=== PATIENT | female | born 2000 | race Caucasian/White ===

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

== ENCOUNTER 2018-03-28 05:03 | Emergency (ER) | payer SELFPAY ==
[2018-03-28] MEDS ORDERED: SODIUM BICARBONATE SYRINGE 50 MEQ/50 ML SYG IV ONE ×2 (05:04→05:49)
[2018-03-28] MEDS ORDERED: WATER FOR INJ 10 ML VIAL INJ ONE (05:04)
[2018-03-28] MEDS ORDERED: ETOMIDATE INJECTION 2 MG/ML 20ML VIAL IV ONE (05:04)
[2018-03-28] MEDS ORDERED: VECURONIUM BROMIDE 10 MG VIAL IV ONE (05:04)
[2018-03-28] MEDS ORDERED: SODIUM CHLORIDE 0.9% 1000ML 1,000 ML IVS PRN (05:06)
[2018-03-28 05:14] VITALS: TEMP 98.5
[2018-03-28] MEDS ORDERED: SUCCINYLCHOLINE CHLORIDE 200 MG/10 ML VIAL ONE (05:21)
[2018-03-28] MEDS ORDERED: PROPOFOL 200 MG/20 ML VIAL IV ONE (05:34)
[2018-03-28] MEDS ORDERED: ACTIVATED CHARCOAL PELLETS 25 GM BTTL ONE (05:49)
[2018-03-28] MEDS ORDERED: DEX 5% W/NACL 0.9% 1000ML 1,000 ML IVS ONE (05:51)
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
[2018-03-28] MEDS ORDERED: SORBITOL 70 % 30 ML UD ONE (06:06)
--- NOTE | 2018-03-28 06:26 | RAD ---
EXAM DESCRIPTION: Chest,1 View CLINICAL HISTORY:17 years Female, POST INTUBATION Comparison: None FINDINGS: Endotracheal tube tip 3.8 cm above the genoveva. Hazy opacities throughout the left mid to upper lung. Enteric tube courses below the diaphragm. No pleural effusion. No pneumothorax. Cardiac and mediastinal silhouette is unremarkable. No acute osseous abnormality. Soft tissues are unremarkable. IMPRESSION: ET tube tip 3.8 cm above the genoveva. Hazy opacities throughout the left mid upper lung representing atelectasis, pulmonary edema or pneumonia. Electronically signed by: Roberto Muñoz MD 03/28/2018 6:24 AM CDT
[2018-03-28 07:17] VITALS: BP 174/92; O2SAT 96
== END 2018-03-28 06:40 | disposition home or self-care (01) ==
LOC: ER 05:03
DX: T43.012A Poisoning by tricyclic antidepressants, intentional self-harm, initial encounter (principal); F19.10 Other psychoactive substance abuse, uncomplicated; S51.812A Laceration without foreign body of left forearm, initial encounter; S61.512A Laceration without foreign body of left wrist, initial encounter; R00.0 Tachycardia, unspecified; F31.9 Bipolar disorder, unspecified; F41.9 Anxiety disorder, unspecified; Z79.899 Other long term (current) drug therapy; Z91.5 Personal history of self-harm; X83.8XXA Intentional self-harm by other specified means, initial encounter
CPT/HCPCS: 31500; 36415; 36600; 71045; 80053; 80307; 80320; 80329; 82550; 82553; 82803; 82805; 84484; 84703; 85025; 85610; 85730; 93005; 94002; 94770; A4216; J0330; J3490; J7799

== ENCOUNTER 2019-10-14 14:45 | Emergency (ER) | payer SELFPAY ==
[2019-10-14] MEDS ORDERED: predniSONE 20 MG TAB PO ONE (16:11)
--- NOTE | 2019-10-14 16:15 | ED.PDOC ---
History of Present Illness - General Chief Complaint: General Stated Complaint: I yelled so much I don't have a voice Time Seen by Provider: 10/14/19 14:48 Source: patient Exam Limitations: no limitations - History of Present Illness Initial Comments: The patient is a 19-year-old female presented emergency room secondary to hoarseness since Friday. Apparently at that time she has been screaming at some point for an extended period of time. She was hoarse fairly quickly. Pain started at that time and has persisted. No fever. No runny nose. No sore throat otherwise. No nausea vomiting or diarrhea. Timing/Duration: 1 week Severity: moderate Improving Factors: nothing Worsening Factors: nothing Associated Symptoms: denies symptoms Allergies/Adverse Reactions: Allergies band-aids Allergy (Uncoded 09/21/17 12:34) Home Medications: Ambulatory Orders Amoxicillin 875 mg PO BID #20 tab 07/02/16 Ondansetron [Zofran Odt] 4 mg PO Q8H PRN #10 tab 07/02/16 Potassium Chloride [Micro-K] 10 meq PO DAILY #5 cap 07/02/16 Prednisone [Deltasone] 40 mg PO DAILY #10 tab 11/10/16 hydrOXYzine HCl [Atarax] 25 mg PO Q6H PRN #15 tab 11/10/16 predniSONE [Prednisone] 20 mg PO DAILY #4 tab 10/14/19 Review of Systems - Review of Systems Constitutional: States: no symptoms reported EENTM: States: no symptoms reported Respiratory: States: see HPI Cardiology: States: no symptoms reported Gastrointestinal/Abdominal: States: no symptoms reported Genitourinary: States: no symptoms reported Musculoskeletal: States: no symptoms reported Skin: States: no symptoms reported Neurological: States: no symptoms reported Endocrine: States: no symptoms reported All other Systems: No Change from Baseline Past Medical History (General) - Patient Medical History Hx Seizures: No Hx Stroke: No Hx Dementia: No Hx Asthma: Yes Hx of COPD: No Hx Cardiac Disorders: No Hx Congestive Heart Failure: No Hx Pacemaker: No Hx Hypertension: No Hx Thyroid Disease: No Hx Diabetes: No Hx Gastroesophageal Reflux: No Hx Renal Disease: No Hx Cancer: No Hx of HIV: No Hx Hepatitis C: No Hx MRSA: No - Vaccination History Hx Tetanus, Diphtheria Vaccination: Yes Hx Influenza Vaccination: No Hx Pneumococcal Vaccination: No - Social History Hx Tobacco Use: Yes Hx Chewing Tobacco Use: No Hx Alcohol Use: Yes Hx Substance Use: No Hx Substance Use Treatment: No Hx Depression: No Hx Physical Abuse: No Hx Emotional Abuse: No Hx Suspected Abuse: No - Female History Patient is a Female of Child Bearing Age (10 -59 yrs old): Yes Hx Last Menstrual Period: 06/03/17 Patient : - Patient report possibly Hx Gestational Age: 14 Family Medical History - Family History Mother Name: Alycia Jung Age (years): 32 Living Status: Still Living Hx Family Hypertension: Yes Hx Family Cancer: Yes Hx Family;Other: bipolar Physical Exam - Physical Exam General Appearance: Alert, Comfortable, No apparent distress Eye Exam: bilateral normal Ears, Nose, Throat: hearing grossly normal, normal pharynx Neck: supple, other - The patient is worse. Mild diffuse discomfort to palpation over the larynx Respiratory: lungs clear, normal breath sounds, no respiratory distress, no accessory muscle use Cardiovascular/Chest: normal peripheral pulses, regular rate, rhythm, no edema Peripheral Pulses: radial,right: 2+, radial,left: 2+ Rectal Exam: deferred Extremity: normal range of motion, no pedal edema, normal capillary refill Neurologic: flight teacher II-XII nml as tested, alert, normal mood/affect, oriented x 3 Skin Exam: normal color Comments: Vital Signs - 24 hr 10/14/19 15:14 Temperature 98.4 F Pulse Rate [ 86 monitor] Respiratory 18 Rate Blood Pressure 143/88 [Left Arm] O2 Sat by Pulse 100 Oximetry Progress - Progress Progress: 10/14/19 16:16 The patient is a 19-year-old female presented emergency room secondary to what appears to be traumatic laryngitis from overuse. She can continue [id number] Motrin or Aleve. She will be written for 4 days of oral p rednisone. First dose is given here. She needs to avoid straining her voice. She can try and use some topical anesthetics such as Chloraseptic. ER warnings are given. Keep routine follow-up with primary care doctor. If symptoms are not improving over the next week to 10 days then a ENT referral may be warranted. [email or web address] Departure - Departure Clinical Impression: Laryngitis Disposition: Discharge to Home or Self Care Condition: Good Departure Forms: ED Discharge - Pt. Copy, Patient Portal Self Enrollment Instructions: Laryngitis (DC) Diet: regular diet Activity: increase activity as tolerated Referrals: Yamileth Brito FNP [Primary Care Provider] - 1-2 Weeks Prescriptions: predniSONE [Prednisone] 20 mg PO DAILY #4 tab Home Medications: Ambulatory Orders Amoxicillin 875 mg PO BID #20 tab 07/02/16 Ondansetron [Zofran Odt] 4 mg PO Q8H PRN #10 tab 07/02/16 Potassium Chloride [Micro-K] 10 meq PO DAILY #5 cap 07/02/16 Prednisone [Deltasone] 40 mg PO DAILY #10 tab 11/10/16 hydrOXYzine HCl [Atarax] 25 mg PO Q6H PRN #15 tab 11/10/16 predniSONE [Prednisone] 20 mg PO DAILY #4 tab 10/14/19 Additional Instructions: The patient is a 19-year-old female presented emergency room secondary to what appears to be traumatic laryngitis from overuse. She can continue [id number] Motrin or Aleve. She will be written for 4 days of oral prednisone. First dose is given here. She needs to avoid straining her voice. She can try and use some topical anesthetics such as Chloraseptic. ER warnings are given. Keep routine follow-up with primary care doctor. If symptoms are not improving over the next week to 10 days then a ENT referral may be warranted.
[2019-10-14 16:56] VITALS: BP 134/80; TEMP 97.8; O2SAT 95
== END 2019-10-14 16:52 | disposition home or self-care (01) ==
LOC: ER 14:45
DX: J04.0 Acute laryngitis (principal); F17.200 Nicotine dependence, unspecified, uncomplicated
CPT/HCPCS: 81025; J7512

== ENCOUNTER 2020-01-10 20:47 | Emergency (ER) | payer SELFPAY ==
[2020-01-10] MEDS ORDERED: cefTRIAXone SODIUM 1 GM in SODIUM CHL 0.9% 50ML MIN-BAG+ 50 ML IVPB ONE (21:08)
[2020-01-10] MEDS ORDERED: AZITHROMYCIN IV 500 MG in SODIUM CHLORIDE 0.9% 250ML 250 ML IVPB ONE (21:09)
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
--- NOTE | 2020-01-10 21:34 | RAD ---
XR CHEST 1 VIEW CLINICAL STATEMENT: SOB COMPARISON: 03/28/2018 FINDINGS: Cardiomediastinal silhouette is within normal limits. There is no focal lung consolidation or pleural effusion. No evidence of pulmonary edema or pneumothorax. IMPRESSION: No acute cardiopulmonary disease. Electronically signed by: Tavares Mallory MD 01/10/2020 9:32 PM CDT
[2020-01-10] MEDS ORDERED: IPRATROPIUM/ALBUTEROL 3 ML VIAL NEB ONE ×3 (21:43→22:15)
[2020-01-10] MEDS ORDERED: ONDANSETRON INJ 4 MG/2 ML VIAL IV ONE (22:04)
[2020-01-10] MEDS ORDERED: DEXAMETHASONE INJ 10 MG/ML VIAL PO ONE (23:11)
[2020-01-10 23:56] VITALS: TEMP 98.9
[2020-01-11 01:14] VITALS: BP 163/101; O2SAT 94
== END 2020-01-11 01:00 | disposition left against medical advice (07) ==
LOC: ER 20:47 → UNDOADMOB 23:43 → MS 23:43 → ER 01-11 01:00
DX: J18.9 Pneumonia, unspecified organism (principal); R09.02 Hypoxemia; Z11.59 Encounter for screening for other viral diseases; F17.200 Nicotine dependence, unspecified, uncomplicated; Z53.29 Procedure and treatment not carried out because of patient's decision for other reasons
CPT/HCPCS: 71045; 80053; 84703; 85025; 85379; 94640; J0456; J0696; J1100; J2405; J7050; J7620; U0002